=== PATIENT | male | born 1985 | race African-American/Black ===

== ENCOUNTER 2017-10-24 12:53 | Emergency (ER) | payer SELFPAY ==
--- NOTE | 2017-10-24 14:04 | RADIOLOGY REPORT (SQ) ---
EXAM DESCRIPTION: FINGER RIGHT COMPLETED DATE/TIME: 10/24/2017 1:50 pm REASON FOR STUDY: finger pain COMPARISON: None. NUMBER OF VIEWS: Three views. TECHNIQUE: AP, lateral, and oblique images acquired of the right fourth finger. LIMITATIONS: None. FINDINGS: MINERALIZATION: Normal. BONES: No acute fracture or dislocation. No worrisome bone lesions. SOFT TISSUES: No soft tissue swelling. No foreign body. OTHER: No other significant finding. IMPRESSION: NO RADIOGRAPHIC EVIDENCE OF ACUTE INJURY. COMMENT: SITE OF TRAUMA/COMPLAINT MARKED/STAMP COMPLETED: No TECHNICAL DOCUMENTATION: JOB ID: [id number] [place] [employer]- All Rights Reserved Reading location - IP/workstation name: [email or web address]
--- NOTE | 2017-10-24 14:48 | ER Document Report ---
HPI - HPI Patient complains to provider of: Finger pain Pain Level: 3 Context: Patient is a 31-year-old male complaining of pain to his right ring finger. Patient injured it while working on a car Associated Symptoms: None Exacerbated by: Movement - CONSTITUTIONAL Constitutional: DENIES: Fever, Chills - MUSCULOSKELETAL Musculoskeletal: REPORTS: Extremity pain - right middle finger Past Medical History - General Information source: Patient - Social History Smoking Status: Current Every Day Smoker Frequency of alcohol use: Occasional Drug Abuse: None Lives with: Family Family History: Other - none stated Patient has suicidal ideation: No Patient has homicidal ideation: No - Medical History Medical History: Negative Renal/ Medical History: Denies: Hx Peritoneal Dialysis Musculoskeltal Medical History: Reports Hx Musculoskeletal Deformity - back pain for a month - Immunizations Immunizations up to date: No Hx Diphtheria, Pertussis, Tetanus Vaccination: No Vertical Provider Document - CONSTITUTIONAL Agree With Documented VS: Yes General Appearance: WD/WN - INFECTION CONTROL TRAVEL OUTSIDE OF THE [place] IN LAST 30 DAYS: No - HEENT HEENT: Atraumatic, PERRLA - CARDIOVASCULAR Cardiovascular: Regular Rate, Regular Rhythm - MUSCULOSKELETAL/EXTREMETIES Musculoskeletal/Extremeties: Tender - Tenderness to distal phalanx of right ring finger. Positive subungual hematoma 50% of the nail. Nail is firmly attached to bed. No finger deformity. Course - Re-evaluation Re-evalutation: 10/24/17 14:45 X-rays negative for fracture. Nail was cleaned with alcohol and subungual hematoma was evacuated with electrocautery. Good results. Patient tolerated well. Bacitracin and Band-Aid with aluminum splint applied to finger for comfort. Home care, primary care follow-up and ED return precautions discussed. Patient agreeable with plan and stable for discharge - Vital Signs Vital signs: Temp Pulse Resp BP Pulse Ox 99.1 F 89 14 158/94 H 100 10/24/17 13:04 10/24/17 13:04 10/24/17 13:04 10/24/17 13:04 10/24/17 13:04 Procedures - Immobilization right ring ringer Immobilizer type: Finger protection Performed by: PCT Post-Proc Neuro Vasc Exam: Normal Discharge - Discharge Clinical Impression: Subungual hematoma Finger injury Qualifiers: Encounter type: initial encounter Laterality: right Qualified Code(s): S69.91XA - Unspecified injury of right wrist, hand and finger(s), initial encounter Condition: Stable Instructions: Contusion ([facility]) Additional Instructions: Your x-rays negative for fracture The blood under your fingernail was evacuated today Keep area clean, wash with antibacterial soap and water and apply a Band-Aid to the nail Wear finger splint for comfort Ibuprofen for pain Follow-up with your primary care if symptoms persist Return to ER for any worsening Prescriptions: Ibuprofen [Motrin 800 Mg Tablet] 800 mg PO Q6H #20 tablet
[2017-10-24 15:10] VITALS: BP 129/84
== END 2017-10-24 15:11 | disposition home or self-care (01) ==
LOC: ER 12:53
PROC: 0X9J3ZZ Drainage of Right Hand, Percutaneous Approach (ICD-10-PCS; principal; 2017-10-24)
DX: S60.141A Contusion of right ring finger with damage to nail, initial encounter (principal); X58.XXXA Exposure to other specified factors, initial encounter; F17.200 Nicotine dependence, unspecified, uncomplicated
CPT/HCPCS: 99283